=== PATIENT | female | born 1960 | race Caucasian/White ===

== ENCOUNTER 2019-02-02 10:56 | Day surgery (SDC) | payer MEDICARE, OTHER, MEDICAID ==
[2019-02-02] MEDS ORDERED: MEPERIDINE 100 MG INJ (12:29)
[2019-02-02] MEDS ORDERED: LIDOCAINE 2% (SDV) 5 ML INJ (12:29)
[2019-02-02] MEDS ORDERED: ONDANSETRON 4 MG INJ (12:29)
[2019-02-02] MEDS ORDERED: CEFAZOLIN 1 GM INJ (12:29)
[2019-02-02] MEDS ORDERED: METOCLOPRAMIDE 10 MG INJ (12:29)
[2019-02-02] MEDS ORDERED: PROPOFOL 20 ML (12:29)
[2019-02-02] MEDS: LIDOCAINE 1%/EPI 30 ML INJ (12:48)
[2019-02-02] MEDS: BUPIVACAINE 0.5% (SDV) 30 ML INJ (12:48)
[2019-02-02] MEDS ORDERED: EPHEDrine 25 MG/5 ML SYG IV (13:00)
[2019-02-02] MEDS ORDERED: HYDROmorphONE 1 MG/5 ML IV SYRINGE IV ×3 (13:00)
[2019-02-02] MEDS ORDERED: OXYCODONE/ACETAMINOPHEN (5/325) TAB PO ×2 (13:00)
[2019-02-02] MEDS ORDERED: METOCLOPRAMIDE 10 MG INJ IV (13:00)
[2019-02-02] MEDS ORDERED: LABETALOL HCL 20MG INJ IV (13:00)
[2019-02-02] MEDS ORDERED: DIPHENHYDRAMINE 50 MG INJ IV (13:00)
[2019-02-02] MEDS ORDERED: MIDAZOLAM 1 MG/ML 2 ML INJ IV (13:00)
[2019-02-02] MEDS ORDERED: ONDANSETRON 4 MG INJ IV ×2 (13:00→13:30)
[2019-02-02] MEDS ORDERED: hydrALAzine 20 MG INJ IV (13:00)
[2019-02-02] MEDS ORDERED: FENTAnyl 50 MCG/ML VIAL IV ×3 (13:00)
[2019-02-02] MEDS ORDERED: MEPERIDINE 25 MG INJ IV (13:00)
[2019-02-02] MEDS ORDERED: HYDROCODONE/APAP (5/325) TAB PO (13:30)
[2019-02-02] MEDS ORDERED: ACETAMINOPHEN 325 MG TAB PO (13:30)
[2019-02-02] MEDS ORDERED: IBUPROFEN 600 MG TAB PO (13:30)
== END 2019-02-02 14:25 | disposition home or self-care (01) ==
LOC: SDS 10:56
DX: L90.5 Scar conditions and fibrosis of skin (principal); M79.81 Nontraumatic hematoma of soft tissue; R20.8 Other disturbances of skin sensation; E03.9 Hypothyroidism, unspecified; F17.200 Nicotine dependence, unspecified, uncomplicated
CPT/HCPCS: 11403; 88305